=== PATIENT | female | born 1970 | race Caucasian/White ===

== ENCOUNTER → 2020-08-31 | Outpatient (CLI) | payer OTHER ==
[~2020-08-31] MED LIST: AUGMENTIN 875-1 EACH PO; BUPROPION XL150 MG PO; CIPRO HC OTIC S10 ML EARRT; CYCLOBENZAPRINE10 MG PO; FLOVENT 220 MC7.9 GM INH; GABAPENTIN600 MG PO; HORMONE; HYDROCODON-ACE1 EAC4 PO; IBUPROFEN800 MG PO; LORTAB 7.5-3251 EACH PO; PROGESTERONE100 MG PO; VENTOLIN HFA 66.7 GM INH; VIIBRYD40 MG PO
== END ==
LOC: RAD 12:06
DX: M25.551 Pain in right hip (principal); M25.552 Pain in left hip; W19.XXXA Unspecified fall, initial encounter
CPT/HCPCS: 73522

== ENCOUNTER → 2021-01-26 | Outpatient (CLI) | payer OTHER ==
[2021-01-26 16:16] LABS: HEMOGLOBIN 15.8 gm/dl (12.3-15.3); RED BLOOD COUNT 4.79 M/UL (4.00-5.10); WHITE BLOOD COUNT 6.7 K/UL (4.5-11.0)
[2021-01-26 16:40] LABS: BUN/CREATININE RATIO 8 (0-10)
[2021-01-27 09:16] LABS: THYROXINE (T4) 5.2 ug/dL (4.5-12.0)
== END ==
LOC: LAB 14:57
DX: F90.0 Attention-deficit hyperactivity disorder, predominantly inattentive type (principal)
CPT/HCPCS: 36415; 80053; 84436; 84443; 84480; 85025

== ENCOUNTER → 2021-03-01 | Outpatient (CLI) | payer OTHER ==
[2021-03-02 09:14] LABS: HBSAG SCREEN Negative (Negative); HCV AB 0.1 (0.0-0.9); HEP B CORE AB, TOT Negative (Negative)
[2021-03-02 12:14] LABS: COMPLEMENT C3, SERUM 119 mg/dL (82-167); COMPLEMENT C4, SERUM 16 mg/dL (12-38)
[2021-03-02 15:14] LABS: ANGIOTENSIN-CONVERTING ENZYME 25 U/L (14-82)
== END ==
LOC: LAB 13:02
PROVIDERS: Internal Medicine
DX: M79.10 Myalgia, unspecified site (principal); M25.50 Pain in unspecified joint; M35.00 Sjogren syndrome, unspecified; D89.89 Other specified disorders involving the immune mechanism, not elsewhere classified; Z87.09 Personal history of other diseases of the respiratory system; Z11.59 Encounter for screening for other viral diseases
CPT/HCPCS: 36415; 71046; 82164; 82728; 86160; 86704; 86803; 87340

== ENCOUNTER → 2021-05-23 | Outpatient (CLI) | payer MEDICARE, OTHER | LOC: HEART 5 09:00 | DX: J45.991 Cough variant asthma (principal); R05.9 Cough, unspecified; R94.2 Abnormal results of pulmonary function studies | CPT/HCPCS: 94060; 94729 ==

== ENCOUNTER → 2021-07-07 | Outpatient (CLI) | payer MEDICARE, OTHER | LOC: EMI 08:00 | DX: G44.89 Other headache syndrome (principal); G43.009 Migraine without aura, not intractable, without status migrainosus; R55 Syncope and collapse; M54.16 Radiculopathy, lumbar region | CPT/HCPCS: 70551 ==

== ENCOUNTER → 2021-07-07 | Outpatient (CLI) | payer MEDICARE, OTHER | LOC: RAD 09:17 | DX: M47.26 Other spondylosis with radiculopathy, lumbar region (principal) | CPT/HCPCS: 72100 ==

== ENCOUNTER → 2021-09-20 | Day surgery (SDC) | payer MEDICARE, OTHER ==
[~2021-09-20] MED LIST changes: +ADDERALL XR 2525 MG PO; +AJOVY AUTO225 MG/1.5 SQ; +ESTRADIOL0.5 MG PO; +FLUDROCORTISON0.1 MG PO; +KLONOPIN0.5 MG PO; +LATUDA40 MG PO; +MYRBETRIQ25 MG PO; +OXCARBAZEPINE150 MG PO; +PRENATAL VITAMIN; +ROBAXIN 750 MG750 MG GT; +ROSADAN 0.75%1 EAC1 TP; +SPIRIVA RESPIMAT4 GM INH; +UBRELVY100 MG PO; +VITAMIN B12-FO1 EACH PO; +VITAMIN D; +XIIDRA 5%
== END | disposition home or self-care (01) ==
LOC: OR 08:10
DX: K58.1 Irritable bowel syndrome with constipation (principal); K64.0 First degree hemorrhoids; K31.9 Disease of stomach and duodenum, unspecified; K20.90 Esophagitis, unspecified without bleeding; F17.210 Nicotine dependence, cigarettes, uncomplicated; Z88.8 Allergy status to other drugs, medicaments and biological substances; Z79.899 Other long term (current) drug therapy; Z20.822 Contact with and (suspected) exposure to COVID-19
CPT/HCPCS: J2704; J7040